=== PATIENT | female | born 1955 | race Hispanic/Latino ===

== ENCOUNTER 2018-02-26 14:05 | Emergency (ER) | payer BC, OTHER ==
[~2018-02-26] VITALS: Ht 154.9 cm; Wt 95.7 kg
[~2018-02-26 14:05] MED LIST: GABAPENTIN300 MG PO; LEVEMIR100 UNIT/1 SQ; LORATADINE10 MG PO; METFORMIN HCL1000 MG PO; TYLENOL WITH C1 EACH PO
[2018-02-26] MEDS ORDERED: KETOROLAC TROMETHAMINE 60 MG/2 ML VIAL IM ONE (14:45)
[2018-02-26 16:50] VITALS: BP 126/72
== END 2018-02-26 15:20 | disposition home or self-care (01) ==
LOC: FSED 14:05
DX: S60.212A Contusion of left wrist, initial encounter (principal); S60.211A Contusion of right wrist, initial encounter; W01.0XXA Fall on same level from slipping, tripping and stumbling without subsequent striking against object, initial encounter; Y92.009 Unspecified place in unspecified non-institutional (private) residence as the place of occurrence of the external cause
CPT/HCPCS: 73110 ×2; 99283; J1885